=== PATIENT | female | born 2000 | race Hispanic/Latino ===

== ENCOUNTER 2019-03-05 19:54 | Emergency (ER) | payer BC, SELFPAY ==
[2019-03-05 20:41] LABS: Absolute Lymphocytes (CBC) 1.9 K/uL (0.7-4.9); Absolute Monocytes 0.6 K/uL (0.1-1.3); Absolute Neutrophil 8.6 K/uL (1.8-8.0); Basophils % 0.3 % (0-1.3); Eosinophils % 1.3 % (0-4.4); Lymphocytes % 16.7 % (15.3-44.8); MPV 8.2 fL (7.6-11.3); Monocytes % 5.6 % (3.3-12.3); RBC Red Blood Cell Count 4.51 M/uL (3.86-4.86)
[2019-03-05] MEDS ORDERED: NA CHLORIDE 0.9% 1,000 ML ONE (20:49)
[2019-03-05] MEDS ORDERED: ACETAMINOPHEN 325 MG TABLET ONE (20:49)
[2019-03-05] MEDS ORDERED: METOCLOPRAMIDE 10 MG/2mL INJ ONE (20:49)
[2019-03-05 21:07] LABS: ALT/SGPT 13 U/L (12-78); AST/SGOT 10 U/L (15-37); Albumin 3.5 g/dL (3.4-5.0); Alkaline Phosphatase 88 U/L (45-117); BUN Blood Urea Nitrogen 4 mg/dL (7-18); Bicarbonate 22 mmol/L (21-32); Bilirubin Direct < 0.1 mg/dL (0-0.2); Bilirubin Total 0.4 mg/dL (0.2-1.0); Glucose Level 85 mg/dL (74-106); Lipase 87 U/L (73-393); Potassium 3.6 mmol/L (3.5-5.1); Protein, Total 7.4 g/dL (6.4-8.2); Sodium Level 139 mmol/L (136-145)
[2019-03-05 23:21] LABS: Urine Blood 1+ (NEG); Urine Glucose NEGATIVE (NEG); Urine Protein 2+ (NEG)
[2019-03-05] MEDS ORDERED: CEFTRIAXONE/SWI 1gm 1 GM/10 ML SYR ONE (23:47)
--- NOTE | 2019-03-05 23:55 | ER ---
Nurse's Notes [facility] Name: Ramya Grady Age: 18 yrs Sex: Female : 2000 Arrival Date: 03/05/2019 Time: 19:58 Bed 26 Private MD: Diagnosis: Flank Pain;Urinary tract infection, site not specified Presentation: 03/05 20:04 Presenting complaint: Patient states: right flank pain that radiates to RLQ started 1 tl2 hour ago. Denies nausea or vomiting. Denies urinary symptoms. Pt is 5 months , no vaginal bleeding. Transition of care: patient was not received from another setting of care. Onset of symptoms was March 05, 2019 at 19:00. Risk Assessment: Do you want to hurt yourself or someone else? Patient reports no desire to harm self or others. Initial Sepsis Screen: Does the patient meet any 2 criteria? No. Patient's initial sepsis screen is negative. Does the patient have a suspected source of infection? No. Patient's initial sepsis screen is negative. Care prior to arrival: None. 20:04 Method Of Arrival: Wheelchair tl2 20:04 Acuity: NAVYA 3 tl2 Triage Assessment: 20:05 General: Appears in no apparent distress. uncomfortable, Behavior is cooperative, tl2 appropriate for age, crying. Pain: Complains of pain in right flank Pain radiates to right lower quadrant. 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 - Social history:: Smoking status: Patient/guardian denies using tobacco. - Ebola Screening: : No symptoms or risks identified at this time. Screenin:16 Abuse screen: Denies threats or abuse. Denies injuries from another. Nutritional ca1 screening: No deficits noted. Tuberculosis screening: No symptoms or risk factors identified. Fall Risk None identified. Assessment: 20:16 General: Appears in no apparent distress. uncomfortable, Behavior is calm, cooperative, ca1 appropriate for age. Pain: Complains of pain in right mid back Pain radiates to right lower quadrant and left lower quadrant Pain currently is 6 out of 10 on a pain scale. Quality of pain is described as sharp, Pain began 2 hours ago. Is continuous. Neuro: Level of Consciousness is awake, alert, obeys commands, Oriented to person, place, time, situation. Cardiovascular: Heart tones S1 S2 present Capillary refill < 3 seconds Patient's skin is warm and dry. Respiratory: Airway is patent Respiratory effort is even, unlabored, Respiratory pattern is regular, symmetrical, Breath sounds are clear bilaterally. GI: Abdomen is round non-distended, Bowel sounds present X 4 quads. Abd is soft and non tender X 4 quads. : No deficits noted. No signs and/or symptoms were reported regarding the genitourinary system. EENT: No deficits noted. No signs and/or symptoms were reported regarding the EENT system. Derm: Skin is intact, is healthy with good turgor, Skin is pink, warm \T\ dry. Musculoskeletal: Circulation, motion, and sensation intact. Capillary refill < 3 seconds. 21:09 Reassessment: Patient appears in no apparent distress at this time. Patient and/or ca1 family updated on plan of care and expected duration. Pain level reassessed. Patient is alert, oriented x 3, equal unlabored respirations, skin warm/dry/pink. 22:05 Reassessment: Patient appears in no apparent distress at this time. Patient is alert, ca1 oriented x 3, equal unlabored respirations, skin warm/dry/pink. Patient states feeling better. 23:00 Reassessment: Patient appears in no apparent distress at this time. Patient and/or ca1 family updated on plan of care and expected duration. Pain level reassessed. Patient is alert, oriented x 3, equal unlabored respirations, skin warm/dry/pink. 23:29 Reassessment: Patient appears in no apparent distress at this time. Patient and/or ca1 family updated on plan of care and expected duration. Pain level reassessed. Patient is alert, oriented x 3, equal unlabored respirations, skin warm/dry/pink. Vital Signs: 20:05 BP 117 / 62; Pulse 74; Resp 18; Temp 98.5(O); Pulse Ox 98% ; Weight 56.7 kg; Height 5 tl2 ft. 1 in. (154.94 cm); Pain 7/10; 21:09 BP 103 / 62; Pulse 68; Resp 18; Pulse Ox 97% on R/A; ca1 21:26 BP 105 / 60; Pulse 63; Resp 17 S; Pulse Ox 98% on R/A; ca1 22:05 BP 96 / 78; Pulse 95; Resp 19 S; Pulse Ox 100% on R/A; ca1 23:26 BP 103 / 52; Pulse 77; Resp 19 S; Pulse Ox 100% on R/A; ca1 03/06 00:01 BP 105 / 54; Pulse 62; Resp 19 S; Pulse Ox 100% on R/A; ca1 03/05 20:05 Body Mass Index 23.62 (56.70 kg, 154.94 cm) tl2 ED Course: 03/05 19:58 Patient arrived in ED. es 20:05 Triage completed. tl2 20:05 Arm band placed on right wrist. tl2 20:15 Rocky Kimball, JEF is Primary Nurse. rv 20:16 Patient has correct armband on for positive identification. Placed in gown. Bed in low ca1 position. Call light in reach. Side rails up X 1. Pulse ox on. NIBP on. Warm blanket given. 20:19 Asad Omer PA is PHCP. jmm 20:19 Joe Calvillo MD is Attending Physician. jmm 20:23 Inserted saline lock: 20 gauge in right antecubital area, using aseptic technique. jb5 Blood collected. 20:35 Basic Metabolic Panel Sent. jb5 20:35 CBC with Diff Sent. jb5 20:35 Creatinine for Radiology Sent. jb5 20:35 Hepatic Function Sent. jb5 20:35 Lipase Sent. jb5 20:45 Abo/rh Typing Sent. jb5 20:45 Quantitative Hcg Sent. jb5 21:21 US 1st Trimest Single 1st Fetus In Process Unspecified. EDMS 21:22 US Abdomen Limited In Process Unspecified. EDMS 22:07 Renal Ultrasound-Complete In Process Unspecified. EDMS 23:17 Urine --Ancillary (enter results) Sent. jb5 23:17 Urine Dipstick--Ancillary (enter results) Sent. jb5 03/06 00:10 No provider procedures requiring assistance completed. IV discontinued, intact, rv bleeding controlled, No redness/swelling at site. Pressure dressing applied. Administered Medications: 03/05 20:35 Drug: NS 0.9% (20 ml/kg) 20 ml/kg Route: IV; Rate: 1 bolus; Site: right antecubital; ca1 03/06 00:11 Follow up: IV Status: Completed infusion rv 03/05 20:35 Drug: Tylenol 650 mg Route: PO; ca1 21:28 Follow up: Response: No adverse reaction; Pain is decreased ca1 20:36 Drug: Reglan 10 mg Route: IVP; Site: right antecubital; ca1 21:28 Follow up: Response: No adverse reaction; Nausea is decreased ca1 23:37 Drug: Rocephin - (cefTRIAXone) 1 grams Route: IVPB; Infused Over: 30 mins; Site: right rv antecubital; 03/06 00:10 Follow up: IV Status: Completed infusion rv Outcome: 03/05 23:55 Discharge ordered by MD. granados 03/06 00:10 Discharged to home ambulatory. rv Condition: good Discharge instructions given to patient, Instructed on discharge instructions, follow up and referral plans. medication usage, Demonstrated understanding of instructions, follow-up care, medications, Prescriptions given X 1. 00:11 Patient left the ED. rv Signatures: Dispatcher [employer] EDMS Asad Omer PA PA jmm Salyer, Edna es Knox, Taylor, RN RN tl2 Naila Olea5 Rocky Kimball RN RN rv Poppy Cesar RN RN ca1 Corrections: (The following items were deleted from the chart) 03/05 21:44 20:16 GI: Abdomen is flat, non-distended, Bowel sounds present X 4 quads. Abd is soft ca1 and non tender X 4 quads. ca1 23:29 23:26 Reassessment: Patient appears in no apparent distress at this time. Patient ca1 and/or family updated on plan of care and expected duration. Pain level reassessed. Patient is alert, oriented x 3, equal unlabored respirations, skin warm/dry/pink. ca1
--- NOTE | 2019-03-05 23:55 | EDPHYS ---
Physician Documentation [facility] Name: Ramya Grady Age: 18 yrs Sex: Female : 2000 Arrival Date: 03/05/2019 Time: 19:58 Bed 26 Private MD: ED Physician Joe Calvillo HPI: 03/05 20:27 This 18 yrs old Female presents to ER via Wheelchair with complaints of Flank jmm Pain. 20:27 The patient complains of pain in the right flank. Onset: The symptoms/episode jmm began/occurred acutely, just prior to arrival. Modifying factors: The symptoms are alleviated by nothing. the symptoms are aggravated by nothing. This is a 18 year old female currently 18 week that presents to the ED with complaints of right upper abdominal pain. Symptoms began acutely. Denies vomiting, denies fever, denies diarrhea, denies vaginal bleeding, denies vaginal discharge. . 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 - Social history:: Smoking status: Patient/guardian denies using tobacco. - Ebola Screening: : No symptoms or risks identified at this time. ROS: 20:27 Constitutional: Negative for fever, chills, and weight loss, Cardiovascular: Negative jmm for chest pain, palpitations, and edema, Respiratory: Negative for shortness of breath, cough, wheezing, and pleuritic chest pain. 20:27 Abdomen/GI: Positive for abdominal pain, Negative for nausea and vomiting, diarrhea. 20:27 Back: Positive for flank pain, on the right. 20:27 All other systems are negative. Exam: 20:27 Head/Face: atraumatic. Eyes: EOMI, no conjunctival erythema appreciated ENT: Moist jmm Mucus Membranes Neck: Trachea midline, Supple Chest/axilla: Normal chest wall appearance and motion. Cardiovascular: Regular rate and rhythm. No edema appreciated Respiratory: Normal respirations, no respiratory distress appreciated 20:27 Constitutional: The patient appears alert, awake, in obvious pain. 20:27 Abdomen/GI: Inspection: gravid appearance, Bowel sounds: normal, Palpation: soft, mild abdominal tenderness, in the right upper quadrant. 20:27 Back: CVA tenderness, that is mild, is noted on the right. 20:27 Musculoskeletal/extremity: ROM: intact in all extremities. 20:27 Skin: Appearance: Color: normal in color. 20:27 Neuro: Orientation: is normal, Mentation: is normal, Memory: is normal. 20:27 Psych: Behavior/mood is pleasant, cooperative. Vital Signs: 20:05 BP 117 / 62; Pulse 74; Resp 18; Temp 98.5(O); Pulse Ox 98% ; Weight 56.7 kg; Height 5 tl2 ft. 1 in. (154.94 cm); Pain 7/10; 21:09 BP 103 / 62; Pulse 68; Resp 18; Pulse Ox 97% on R/A; ca1 21:26 BP 105 / 60; Pulse 63; Resp 17 S; Pulse Ox 98% on R/A; ca1 22:05 BP 96 / 78; Pulse 95; Resp 19 S; Pulse Ox 100% on R/A; ca1 23:26 BP 103 / 52; Pulse 77; Resp 19 S; Pulse Ox 100% on R/A; ca1 05 00:01 BP 105 / 54; Pulse 62; Resp 19 S; Pulse Ox 100% on R/A; ca1 03/05 20:05 Body Mass Index 23.62 (56.70 kg, 154.94 cm) tl2 MDM: 03/05 20:30 Patient medically screened. [facility] 23:50 ED course: Patient's pain is completely resolved on reevaluation. Patient has no right [facility] lower abdominal pain. US reveals mild hydronbephrosis, UA consistent with UTI. Patient is advised to closely follow up with ob and is given strict return precautions. patient is non toxic in appearance on discharge. . 23:54 Data reviewed: vital signs, nurses notes. Counseling: I had a detailed discussion with [facility] the patient and/or guardian regarding: the historical points, exam findings, and any diagnostic results supporting the discharge/admit diagnosis, the need for outpatient follow up, to return to the emergency department if symptoms worsen or persist or if there are any questions or concerns that arise at home. 03/05 20:27 Order name: Basic Metabolic Panel; Complete Time: 21:20 [facility] 03/05 20:27 Order name: CBC with Diff; Complete Time: 21:03 [facility] 03/05 20:27 Order name: Creatinine for Radiology; Complete Time: 21:20 [facility] 03/05 20:27 Order name: Hepatic Function; Complete Time: 21:20 [facility] 03/05 20:27 Order name: Lipase; Complete Time: 21:20 [facility] 03/05 20:31 Order name: Quantitative Hcg; Complete Time: 21:37 [facility] 03/05 20:31 Order name: Abo/rh Typing; Complete Time: 22:05 [facility] 03/05 20:31 Order name: US Abdomen Limited [facility] 03/05 23:16 Order name: Urine Dipstick--Ancillary (enter results); Complete Time: 23:44 vt 03/05 23:16 Order name: Urine --Ancillary (enter results); Complete Time: 23:44 vt 03/05 23:17 Order name: Urine Culture [facility] 03/05 23:17 Order name: Urine Microscopic Only; Complete Time: 01:03 [facility] 03/05 20:27 Order name: IV Saline Lock; Complete Time: 20:33 [facility] 03/05 20:27 Order name: Labs collected and sent; Complete Time: 20:33 [facility] 03/05 20:27 Order name: Urine Dipstick-Ancillary (obtain specimen); Complete Time: 23:25 [facility] 03/05 20:27 Order name: Urine Test (obtain specimen); Complete Time: 23:25 [facility] 03/05 22:07 Order name: Renal Ultrasound-Complete EDMS Administered Medications: 20:35 Drug: NS 0.9% (20 ml/kg) 20 ml/kg Route: IV; Rate: 1 bolus; Site: right antecubital; ca1 03/06 00:11 Follow up: IV Status: Completed infusion rv 03/05 20:35 Drug: Tylenol 650 mg Route: PO; ca1 21:28 Follow up: Response: No adverse reaction; Pain is decreased ca1 20:36 Drug: Reglan 10 mg Route: IVP; Site: right antecubital; ca1 21:28 Follow up: Response: No adverse reaction; Nausea is decreased ca1 23:37 Drug: Rocephin - (cefTRIAXone) 1 grams Route: IVPB; Infused Over: 30 mins; Site: right rv antecubital; 03/06 00:10 Follow up: IV Status: Completed infusion rv Disposition: 03/05/19 23:55 Discharged to Home. Impression: Flank Pain, Urinary tract infection, site not specified. - Condition is Stable. - Discharge Instructions: Urinary Tract Infection, Adult. - Prescriptions for cefpodoxime 200 mg Oral Tablet - take 1 tablet by ORAL route every 12 hours for 10 days with food; 20 tablet. - Medication Reconciliation Form, Thank You Letter, Antibiotic Education, Prescription Opioid Use form. - Follow up: Private Physician; When: 1 - 2 days; Reason: Recheck today's complaints, Continuance of care, Re-evaluation by your physician. Signatures: Dispatcher [employer] [facility] Asad Omer PA PA [facility] Kathleen Newell, RN RN tl2 Rocky Kimball RN RN rv Poppy Cesar RN RN ca1 Corrections: (The following items were deleted from the chart) 03/05 22:07 21:39 Rp Exam Limited+[email or web address] ordered. [facility] 23:55 23:55 03/05/2019 23:55 Discharged to Home. Impression: Flank Pain. Condition is Stable. [facility] Forms are Medication Reconciliation Form, Thank You Letter, Antibiotic Education, Prescription Opioid Use. Follow up: Private Physician; When: 1 - 2 days; Reason: Recheck today's complaints, Continuance of care, Re-evaluation by your physician. leeanne 03/06 00:11 03/05 23:55 03/05/2019 23:55 Discharged to Home. Impression: Flank Pain; Urinary tract rv infection, site not specified. Condition is Stable. Forms are Medication Reconciliation Form, Thank You Letter, Antibiotic Education, Prescription Opioid Use. Follow up: Private Physician; When: 1 - 2 days; Reason: Recheck today's complaints, Continuance of care, Re-evaluation by your physician. [facility]
[2019-03-06 00:03] LABS: Urine Bacteria LOADED /HPF (<20); Urine Culture Reflex Order NOT NEEDED; Urine RBC <5 /HPF (NONE SEEN)
[2019-03-06 02:15] VITALS: TEMP 98.2
[2019-03-06 02:16] VITALS: BP 120/69; O2SAT 98
--- NOTE | 2019-03-06 07:31 | RAD REPORT ---
EXAM DESCRIPTION: US - Abdomen Exam Limited - 03/05/2019 9:21 pm CLINICAL HISTORY: Abdominal pain, right flank pain Preliminary findings provided at the time of the study. COMPARISON: None. FINDINGS: No gallstones, sludge or other abnormalities within the gallbladder lumen. There is no wal l thickening or pericholecystic fluid. No common duct stone or biliary tree dilatation identified. Partially imaged right kidney shows significant hydronephrosis. Kidney is not fully evaluated. IMPRESSION: Normal gallbladder and biliary tree ultrasound. Significant hydronephrosis of a partially imaged right kidney.
--- NOTE | 2019-03-06 08:15 | RAD REPORT ---
EXAM DESCRIPTION: US - OB Complete - 03/06/2019 6:51 am CLINICAL HISTORY: , abdominal pain COMPARISON: None. FINDINGS: A single breech presenting gestation is identified. The 4 chamber heart view has a normal appearance. Heart rate normal. The intracranial contents and spine are grossly normal. A left- sided stomach bubble is seen with normal appearing bladder and kidneys. The 3 vessel cord, insertion site and anterior abdominal wall have normal appearance. No abnormalities are identifiable. measurements are as follows: BPD:4.43 Centimeters 19 weeks 3 days HC:16.55 Centimeters 19 weeks 2 days AC:14.19 Centimeters 19 weeks 4 days HL:2.83 Centimeters 19 weeks 1 day FL:3.01 Centimeters 19 weeks 2 days The estimated gestational age (EGA) is 19 weeks 2 days with an ANDREY of 07/28/2019. ratios are n ormal or within acceptable limits. The placenta is grade 0, posterior in location. No low-lying or pl acenta previa. The amniotic fluid volume is normal. No maternal adnexa abnormality. IMPRESSION: 1. Single, breech gestation with an EGA of 19 weeks 2 days and an ANDREY of the 07/28/2019. 2. No abnormalities are identifiable. ratios are normal or within acceptable limits. 3. Grade 0, posterior placenta with no low-lying or placenta previa. 4. Amniotic fluid volume is normal.
--- NOTE | 2019-03-06 12:51 | RAD REPORT ---
EXAM DESCRIPTION: US - Renal Ultrasound-Complete - 03/05/2019 10:07 pm CLINICAL HISTORY: 18 years old and is Female; right flank pain TECHNIQUE: Real-time ultrasound of the retroperitoneum (complete) with image documentation. COMPARISON: No relevant prior studies available. FINDINGS: Limitations: None. Aorta: No aneurysm. Common iliac arteries: No aneurysm. Inferior vena cava: Unremarkable. Right kidney: 10.9 cm long. There is mild right hydronephrosis. No stones. Left kidney: 11.0 cm long. No stones. No hydronephrosis. Bladder: One image demonstrates partial distention. Bladder not completely assessed. IMPRESSION: Mild right hydronephrosis. Electronically signed by: Candace Gan MD 03/05/2019 10:45 PM CDT Due to temporary technical issues with the PACS/Fluency reporting system, reports are being signed by the in house radiologist as a courtesy to ensure prompt reporting. The interpreting radiologist is f ully responsible for the content of the report.
== END 2019-03-06 00:11 | disposition home or self-care (01) ==
LOC: ER 19:54
DX: O23.42 Unspecified infection of urinary tract in pregnancy, second trimester (principal); Z3A.18 18 weeks gestation of pregnancy
CPT/HCPCS: 36415; 76705; 76770; 76801; 76805; 80048; 80076; 81003; 81015; 81025; 83690; 84702; 85025; 86900; 86901; 87086; 87088; 96361; 96365; 96375; 99284; J0696; J2765; J7030

== ENCOUNTER 2021-11-16 22:29 | Observation (INO) | payer BC, SELFPAY ==
--- OUTSIDE RECORDS SUMMARY | 2021-11-16 22:33 | XMS REPORT | Continuity of Care Document ---
:2000 Author Organization [facility] t Address [address] [place] [address] Dr. Bishop [address] [place] [address] Care Team Providers Name Role Phone German Garcia DO Attending Clinician Haroon MAYO F Attending Clinician Doctor Unassigned, Name Attending Clinician Unavailable Natalie Zarco Attending Clinician Natalie SANTILLAN Attending Clinician Unavailable Haroon MAYO F Admitting Clinician Payers Payer Name Policy Type Policy Number Effective Date Expiration Date S ource Problems Condition Condition Condition Status Onset Resolution Last Treating Co mments Source Name Details Category Date Date Treatment Clinician Date Screening Screening Disease Active 2018-11 Uni vers for STD for STD 0-24 ity of ([place] transmit[place] transmitte 00 Me dical d disease) d disease) Br anch Flu Flu Disease Active 2018-11 Univers vaccine vaccine 0-24 ity of need need 00:00: [address] Need for Need for Disease Active 2018-11 Unive rs HPV HPV 0-24 [place] [facility] Disease Active Univers (spontaneo (spontaneo - it [place] of [place] vaginal [place] vaginal [place] [facility] Single Single Disease Active Univers live live 13 it y of 00:00: [address] 37 weeks 37 weeks Disease Active Unive rs gestation gestation 912 ity of of of 00:00: [place] [facility] GBS (group GBS (group Disease Active Overview : Univers B B 9-11 Will ity of Streptococ Streptococ 00:00: [place] c[place] cus 00 in labor Medical carrier), carrier), and Bran ch +RV +RV delivery culture, culture, currently currently High risk High risk Disease Active Uni vers , , 8-12 it y of antepartum antepartum 00:00: [address] Insufficie Insufficie Disease Active U nivers nt nt 8-12 ity of 00:00: [place] care in care in 00 Medical third third Branch trimester trimester Multiparit Multiparit Disease Active U nivers y y 8-12 ity of 00:00: [place] 00 [facility] High risk High risk Disease Active Uni vers teen teen 8-12 [place] third in third 00 Medica l trimester trimester Bran ch Encounter Encounter Disease Active 2017-11 Uni vers for for 2-18 ity of initial initial 00:00: [place] prescripti prescripti 00 Me dical on of on of Branch injectable injectable contracept contracept sukhwinder sukhwinder Nexplanon Nexplanon Disease Active Uni vers in place in place 1-18 ity of 00:00: [address] Allergies, Adverse Reactions, Alerts Allergy Allergy Status Severity Reaction(s) Onset Inactive Treating Comm ents Source Name Type Date Date Clinician NO KNOWN Drug Active Univers ALLERGIE Class ity of S [facility] Social History Social Habit Start Date Stop Date Quantity Comments Source ASSERTION 2018-11-09 [facility] 00:00:00 [facility] Tobacco use and 2019-08-29 2019-08-29 Never used Universit y of exposure 00:00:00 00:00:00 [facility] Alcohol intake 2019-08-29 2019-08-29 Current [facility] 00:00:00 00:00:00 non-drinker of [facility] alcohol Branch (finding) Sex Assigned At [birth year] Universit y of 00:00:00 00:00:00 [facility] Smoking Status Start Date Stop Date Source Never smoker [facility] Medications Ordered Filled Start Stop Current Ordering Indication Dosage Frequency Signature Comments Components Source Medication Medication Date Date Medication? Clinician (SIG) Name Name measles, 2019- No .5mL 0.5 mL, Unive rs mumps + 07-19 Subcutaneo ity o f rubella vac 13:45: 18:46 , ONCE, [place] (-M-R II) 00 :00 1 dose, Medica l 1,000-12,50 Fri Branch 0 07/19/19 at TCID50/0.5 0845, mL Routine injection 0.5 mL docusate Yes [id number] 240mg Take 1 Un elizabeth calcium 240 9-13 capsule by it y of mg capsule 00:00: mouth once [place] 00 daily as Medical needed for Branch Constipati on. ibuprofen Yes [id number] 600mg Take 1 U nivers 600 mg 9-13 tablet by ity of tablet 00:00: mouth every 6 Medical (six) Branch hours as needed for Pain (scale 1-3) or Pain (scale 4-6) (Pain). Take with food or milk. Iron Fum & Yes [id number] 1{capsu Take 1 Univers P-FA-Vit B 9-13 le} capsule by ity of & C No.9 00:00: mouth [place] (INTEGRA 00 daily. Medical PLUS) 125 Branch mg iron- 1 mg Cap docusate Yes [id number] 240mg Take 1 Un elizabeth calcium 240 9-13 capsule by it y of mg capsule 00:00: mouth once [place] 00 daily as Medical needed for Branch Constipati on. ibuprofen Yes [id number] 600mg Take 1 U nivers 600 mg 9-13 tablet by ity of tablet 00:00: mouth [place] every 6 Medical (six) Branch hours as needed for Pain (scale 1-3) or Pain (scale 4-6) (Pain). Take with food or milk. Iron Fum & Yes [id number] 1{capsu Take 1 Univers P-FA-Vit B 9-13 le} capsule by ity of & C No.9 00:00: mouth [place] (INTEGRA 00 daily. Medical PLUS) 125 Branch mg iron- 1 mg Cap rho(D) Yes 300ug 300 mcg, Univer s immune 07-18 Intramuscu ity of globulin 16:08: lar, ONCE, [place] as (RHOGAM) 30 For 1 Medical syringe 300 dose, Branch mcg Conditiona l, Routine acetaminoph 2019-0 Yes 650mg 650 mg, Un elizabeth en 07-18 Oral, ity of (TYLENOL) 16:08: Q6HPRN, [place] tablet 650 26 Starting Medic al mg Precious Branch 07/18/19 at 1108, Until Discontinu ed, Routine, Pain (scale 1-3) ibuprofen 2019-0 Yes 600mg 600 mg, Univ ers (IBU) 07-18 Oral, ity of tablet 600 16:08: Q6HPRN, [place] mg 26 Starting Medical Precious Branch 07/18/19 at 1108, Until Discontinu ed, Routine, Pain (scale 4-6) diphenhydrA 2019-0 Yes 25mg 25 mg, Univ ers MINE 07-18 Oral, ity of (BENADRYL) 16:08: Q6HPRN, [place] tablet 25 26 Starting Medica l mg Precious Branch 07/18/19 at 1108, Until Discontinu ed, Routine, Sleep, Itching ondansetron 2019-0 Yes 4mg 4 mg, Slow Univers (ZOFRAN 07-18 IV Push, ity of (PF)) 16:08: Q8HPRN, [place] injection 4 26 Starting Medi jeffery mg Precious Branch 07/18/19 at 1108, Until Discontinu ed, Routine, Nausea and Vomiting (N/V) simethicone 2019-0 Yes 160mg 160 mg, Un elizabeth (GAS 07-18 Oral, ity of RELIEF) 16:08: PC+HSPRN, [place] chewable 26 Starting Medical tablet 160 Precious Branch mg 07/18/19 at 1108, Until Discontinu ed, Routine, Gas docusate 2019-0 Yes 240mg 240 mg, Unive rs calcium 07-18 Oral, ity of (SURFAK) 16:08: QDAILYPRN, [place] capsule 240 26 Starting Medi jeffery mg Precious Branch 07/18/19 at 1108, Until Discontinu ed, Routine, Constipati on magnesium 2019-0 Yes 30mL 30 mL, Univer s hydroxide 07-18 Oral, ity of (MILK OF 16:08: QDAILYPRN, [place] MAGNESIA) 26 Starting Medica l 400 mg/5 mL Precious Branch suspension 07/18/19 at 30 mL 1108, Until Discontinu ed, Routine, Constipati on benzocaine- Yes Topical, Un elizabeth menthol 07-18 PRN, ity of (DERMOPLAST 16:08: [place] 20-0.5 % 26 Precious Medical topical 07/18/19 at Branch spray 1108, Until Discontinu ed, Routine, Perineum discomfort human 2019- No .5mL 0.5 mL, Univers papillomav 07-18 Intramuscu it y of vac,9-markie(P 16:08: 18:48 lar, [place] F) 26 :00 ONCE-PRIOR Medical (GARDASIL 9 TO Branch (PF)) vial DISCHARGE, 0.5 mL 1 dose, Starting Precious 07/18/19 at 1108, Until Discontinu ed, Routine, Give vaccine prior to discharge morpHINE 2019- No 4mg 4 mg, Slow Un elizabeth injection 4 07-18 IV Push, ity of mg 13:30: 12:47 ONCE, 1 [place] 00 :00 dose, Precious Medical 07/18/19 at Branch 0830, Routine PNV Yes [id number] Take 1 Univers 102-iron-fo 5-08 TAB-CAP/M2 it y of late 00:00: by mouth [place] 1-dss-dha 00 daily. Medical (VITAFOL Branch FE+, WITH DOCUSATE,) 90 mg iron-1 mg -50 mg-200 mg Cap PNV Yes [id number] Take 1 Univers 102-iron-fo 5-08 TAB-CAP/M2 it y of late 00:00: by mouth [place] 1-dss-dha 00 daily. Medical (VITAFOL Branch FE+, WITH DOCUSATE,) 90 mg iron-1 mg -50 mg-200 mg Cap PNV 2019 Yes [id number] Take 1 Univers 102-iron-fo 5-08 TAB-CAP/M2 it y of late 00:00: by mouth [place] 1-dss-dha 00 daily. Medical (VITAFOL Branch FE+, WITH DOCUSATE,) 90 mg iron-1 mg -50 mg-200 mg Cap PNV Yes [id number] Take 1 Univers 102-iron-fo 5-08 TAB-CAP/M2 it y of late 00:00: by mouth [place] 1-dss-dha 00 daily. Medical (VITAFOL Branch FE+, WITH DOCUSATE,) 90 mg iron-1 mg -50 mg-200 mg Cap PNV 2019-0 Yes [id number] Take 1 Univers 102-iron-fo 5-08 TAB-CAP/M2 it y of late 00:00: by mouth [address] 00 daily. Medical (VITAFOL Branch FE+, WITH DOCUSATE,) 90 mg iron-1 mg -50 mg-200 mg Cap PNV 2018-0 Yes [id number] Take 1 Univers 102-iron-fo 5-08 TAB-CAP/M2 it y of late 00:00: by mouth [address] daily. Medical (VITAFOL Branch FE+, WITH DOCUSATE,) 90 mg iron-1 mg -50 mg-200 mg Cap PNV 2018-0 Yes [id number] Take 1 Univers 102-iron-fo 5-08 TAB-CAP/M2 it y of late 00:00: by mouth [address] daily. Medical (VITAFOL Branch FE+, WITH DOCUSATE,) 90 mg iron-1 mg -50 mg-200 mg Cap PNV 0 Yes [id number] Take 1 Univers 102-iron-fo 5-08 TAB-CAP/M2 it y of late 00:00: by mouth [address] daily. Medical (VITAFOL Branch FE+, WITH DOCUSATE,) 90 mg iron-1 mg -50 mg-200 mg Cap PNV 2018-0 Yes [id number] Take 1 Univers 102-iron-fo 5-08 TAB-CAP/M2 it y of late 00:00: by mouth [address] daily. Medical (VITAFOL Branch FE+, WITH DOCUSATE,) 90 mg iron-1 mg -50 mg-200 mg Cap PNV 2018-0 Yes [id number] Take 1 Univers 102-iron-fo 5-08 TAB-CAP/M2 it y of late 00:00: by mouth [address] daily. Medical (VITAFOL Branch FE+, WITH DOCUSATE,) 90 mg iron-1 mg -50 mg-200 mg Cap PNV 2019-0 Yes [id number] Take 1 Univers 102-iron-fo 5-08 TAB-CAP/M2 it y of late 00:00: by mouth [place] 1-dss-dha 00 daily. Medical (VITAFOL Branch FE+, WITH DOCUSATE,) 90 mg iron-1 mg -50 mg-200 mg Cap PNV 2019- No [id number] Take 1 Univ s 102-iron-fo 03-13 TAB-CAP/M2 i ty of late 00:00: 00:00 by mouth [place] 1-dss-dha 00 :00 daily. Medical (VITAFOL Branch FE+, WITH DOCUSATE,) 90 mg iron-1 mg -50 mg-200 mg Cap No known No Univers medications ity of [facility] Immunizations Ordered Filled Immunization Date Status Comments [facility] e Immunization Name Name HPV9 2019-08-29 Completed University of 00:00:00 [facility] Influenza Virus 2019-08-29 Completed Universit y of Vaccine Quad .5 mL 00:00:00 [facility] IM 6+ MO Branch HPV9 2019-07-19 Completed University of 00:00:00 [facility] MMR 2019-07-19 Completed University of 00:00:00 [facility] HPV9 2019-07-19 Completed University of 00:00:00 [facility] MMR 2019-07-19 Completed University of 00:00:00 [facility] Tdap 2019-06-03 Completed University of 00:00:00 [facility] Tdap 2019-06-03 Completed University of 00:00:00 [facility] Tdap 2019-06-03 Completed University of 00:00:00 [facility] Tdap 2019-06-03 Completed University of 00:00:00 [facility] Tdap 2019-06-03 Completed University of 00:00:00 [facility] Tdap 2019-06-03 Completed University of 00:00:00 [facility] TDAP 2019-06-03 Completed University of 00:00:00 [facility] Tdap 2019-06-03 Completed University of 00:00:00 [facility] Tdap 2019-06-03 Completed University of 00:00:00 [facility] Tdap 2019-06-03 Completed University of 00:00:00 [facility] Tdap 2019-06-03 Completed University of 00:00:00 [facility] Tdap 2019-06-03 Completed University of 00:00:00 [facility] Tdap 2019-06-03 Completed University of 00:00:00 [facility] Influenza Virus 2019-03-12 Completed Universit y of Vaccine Quad .5 mL 00:00:00 [place] Medical IM 6+ MO Branch Influenza Virus 2019-03-12 Completed Universit y of Vaccine Quad .5 mL 00:00:00 [place] [facility] IM 6+ MO Branch Influenza Virus 2019-03-12 Completed Universit y of Vaccine Quad .5 mL 00:00:00 [place] Medical IM 6+ MO Branch Influenza Virus 2019-03-12 Completed Universit y of Vaccine Quad .5 mL 00:00:00 [place] [facility] IM 6+ MO Branch Influenza Virus 2019-03-12 Completed Universit y of Vaccine Quad .5 mL 00:00:00 [place] [facility] IM 6+ MO Branch Influenza Virus 2019-03-12 Completed Universit y of Vaccine Quad .5 mL 00:00:00 [place] Medical IM 6+ MO Branch Influenza Virus 2019-03-12 Completed Universit y of Vaccine Quad .5 mL 00:00:00 [place] Medical 6+ MO Branch Influenza Virus 2019-03-12 Completed Universit y of Vaccine Quad .5 mL 00:00:00 [place] Medical IM 6+ MO Branch Influenza Virus 2019-03-12 Completed Universit y of Vaccine Quad .5 mL 00:00:00 [place] Medical IM 6+ MO Branch Influenza Virus 2019-03-12 Completed Universit y of Vaccine Quad .5 mL 00:00:00 [place] [facility] 6+ MO Branch Influenza Virus 2019-03-12 Completed Universit y of Vaccine Quad .5 mL 00:00:00 [place] Medical 6+ MO Branch Influenza Virus 2019-03-12 Completed Universit y of Vaccine Quad .5 mL 00:00:00 [place] Medical 6+ MO Branch Influenza Virus 2019-03-12 Completed Universit y of Vaccine Quad .5 mL 00:00:00 [place] Medical IM 6+ MO Branch Influenza Virus 2019-03-12 Completed Universit y of Vaccine Quad .5 mL 00:00:00 [place] Medical 6+ MO Branch Vital Signs Vital Name Observation Time Observation Value Comments Source Systolic blood 2019-07-19 13:00:00 120 mm[Hg] Univer sity of pressure [facility] Diastolic blood 2019-07-19 13:00:00 64 mm[Hg] Unive rsity of pressure [facility] Heart rate 2019-07-19 13:00:00 62 /min Universi ty of [facility] Body temperature 2019-07-19 13:00:00 36.67 Paige Univ ersity of [facility] Respiratory rate 2019-07-19 13:00:00 20 /min Univ ersity of [facility] Oxygen saturation in 2019-07-19 13:00:00 99 /min University Arterial blood by [facility] Pulse oximetry Branch Systolic blood 2019-07-15 18:22:00 109 mm[Hg] Univer sity of pressure [facility] Diastolic blood 2019-07-15 18:22:00 70 mm[Hg] Unive rsity of pressure [facility] Heart rate 2019-07-15 18:22:00 87 /min Universi ty of [facility] Body temperature 2019-07-15 18:22:00 36.67 Paige Univ ersity of [facility] Branch Respiratory rate 2019-07-15 18:22:00 16 /min Univ ersity of [facility] Body height 2019-07-15 18:22:00 154.9 cm Universi ty of [facility] Body weight 2019-07-15 18:22:00 65.573 kg Universi ty of [facility] BMI 2019-07-15 18:22:00 27.31 kg/m2 Universi ty of [place] [facility] Systolic blood 2019-07-01 18:18:00 111 mm[Hg] Univer sity of pressure [facility] Branch Diastolic blood 2019-07-01 18:18:00 57 mm[Hg] Unive rsity of pressure [facility] Branch Heart rate 2019-07-01 18:18:00 120 /min Universi ty of [facility] Body temperature 2019-07-01 18:18:00 36.17 Paige Univ ersity of [facility] Respiratory rate 2019-07-01 18:18:00 16 /min Univ ersity of [facility] Body height 2019-07-01 18:18:00 154.9 cm Universi ty of [place] [facility] Body weight 2019-07-01 18:18:00 64.978 kg Universi ty of [facility] Branch BMI 2019-07-01 18:18:00 27.07 kg/m2 Universi ty of [facility] Branch Systolic blood 2019-06-17 17:54:00 108 mm[Hg] Univer sity of pressure [place] [facility] [place] Diastolic blood 2019-06-17 17:54:00 67 mm[Hg] Unive rsity of pressure [facility] Heart rate 2019-06-17 17:54:00 70 /min Universi ty of [facility] Body temperature 2019-06-17 17:54:00 36.56 Paige [facility] [place] [facility] Res[facility] rate 2019-06-17 17:54:00 16 /min [facility] [place] [facility] Body height 2019-06-17 17:54:00 154.9 cm Universi ty of [facility] Body weight 2019-06-17 17:54:00 63.504 kg Universi ty of [facility] BMI 2019-06-17 17:54:00 26.45 kg/m2 Universi ty of [facility] Systolic blood 2019-06-03 18:27:00 102 mm[Hg] [facility] [place] [facility] Diastolic blood 2019-06-03 18:27:00 64 mm[Hg] [facility] [place] [facility] Heart rate 2019-06-03 18:27:00 76 /min Universi ty of [facility] Body temperature 2019-06-03 18:27:00 36.61 Paige [facility] [place] [facility] Respiratory rate 2019-06-03 18:27:00 16 /min [facility] [place] [facility] Body height 2019-06-03 18:27:00 154.9 cm Universi ty of [facility] Body weight 2019-06-03 18:27:00 61.689 kg Universi ty of [facility] BMI 2019-06-03 18:27:00 25.70 [facility] Procedures Procedure Date / Time Performing Clinician Source Performed CBC WITH DIFFERENTIAL 2019-07-19 08:35:00 [facility] TYPE AND SCREEN 2019 12:44:00 Magdiel Jerri [facility] RHO (D) IMMUNE GLOBULIN 2019 12:44:00 [facility] HEPATITIS B SURFACE 2019 12:33:00 Jerri Veloz [facility] ANTIGEN [facility] VENOUS CORD GAS 2019 12:33:00 Magdiel [facility] GALV ONLY - SYPHILIS 2019 12:33:00 Jerri Veloz [facility] IGG/IGM [facility] [place] [facility] ADMISSION 2019 05:01:00 Doctor Unassigned, [facility] POCT URINALYSIS 2019-07-15 18:25:00 Nehal Santillan [facility] POCT URINALYSIS 2019-07-01 18:20:00 Nehal Santillan [facility] POCT URINALYSIS 2019-06-17 17:57:00 Nehal Santillan [facility] TDAP VACCINE, >11 YRS, IM 2019-06-03 18:59:53 Nehal Santillan [facility] POCT TEST 2019-06-03 18:29:00 Nehal Santillan [facility] POCT URINALYSIS W/O 2019-06-03 18:29:00 [facility] [place] [facility] SPECIFIC GRAVITY [facility] NO SHOW OR MISSED 2019-06-03 17:44:22 Doctor Forrest, [facility] APPOINTMENT POLICY [place] [facility] ACKNOWLEDGEMENT L&D VISIT (NON-DELIVERED) 2019-05-26 05:01:00 Doctor Forrest, [facility] Encounters Start End Encounter Admission Attending Care Care Encounter Source Date/Time Date/Time Type Type Clinicians Facility Department ID 2021-01-26 2021-01-26 Patient FIGUEROA Garcia [id number] Univers 00:00:00 00:00:00 Outreach Edgard PRIMARY [id number] i ty of [facility] 4.2.7.2.686 Ruchi ORTIZ [id number] Ia dical 388 Branch 2019 2019-07-19 Hospital ALICE Patiño [id number] Univers 06:02:00 17:05:00 Encounter Ike CHRISTINE [id number] ity of [facility] 4.2.7.2.686 Robert edenilson [id number] [facility] 038 Branch 2019 2019 Orders Doctor JENKINS 1.2.840.114 [id number] Univers 00:00:00 00:00:00 Only UnassEMMETT salgado 350.1.13.10 ity of [place] [facility] 4.2.7.2.686 Robert as [id number] [address] 2019-07-15 2019-07-15 Routine Kerri CTOLEGARIO 1.2.840.114 [id number] Univers 13:02:28 14:24:17 Roshunda R [employer] 350.1.13.10 ity of Visit REGIONAL 4.2.7.2.686 Robert as MATERNAL [id number] Med ical & CHILD [address] [place] [address] 2019-07-02 2019-07-02 Telephone Kerri [facility] [id number] Univers 00:00:00 00:00:00 Roshunda R [employer] 350.1.13.10 ity of REGIONAL 4.2.7.2.686 Robert as MATERNAL [id number] [facility] ical & CHILD [address] [place] [address] 2019-07-01 2019-07-01 Routine Kerri [facility] 1.2.840.114 [id number] Univers 13:04:35 13:41:46 Roshunda R [employer] 350.1.13.10 ity of Visit [facility] 4.2.7.2.686 Robert as MATERNAL [id number] [facility] & CHILD [address] [place] [address] 2019-07-01 2019-07-01 Outpatient R KERRI CTOLEGARIO [facility] [id number] Univers 12:45:00 13:41:46 ROSHUNDA ity o f [facility] 2019-06-17 2019-06-17 Routine Kerri [facility] 1.2.840.114 [id number] Univers 12:47:49 13:09:42 Roshunda R [employer] 350.1.13.10 ity of Visit REGIONAL 4.2.7.2.686 Robert as MATERNAL [id number] [facility] ical & CHILD [address] [place] [address] 2019-06-03 2019-06-03 Initial Kerri [facility] 1.2.840.114 [id number] Univers 13:15:45 14:24:53 Roshunda R [employer] 350.1.13.10 ity of Visit REGIONAL 4.2.7.2.686 Robert as MATERNAL [id number] [facility] ical & CHILD [address] [place] [address] 2019-06-03 2019-06-03 Orders Doctor ALICE 1.2.840.114 [id number] Univers 00:00:00 00:00:00 Only Unassigned, EMMETT 350.1.13.10 ity of [place] [facility] 4.2.7.2.686 Robert as [id number] [address] Results Test Description Test Time Test Comments Results Result Comments Source GALV ONLY - SYPHIL[place] IGG/IGM 2019-07-19 14:23:00 Test Item Value Reference Range Interpretation Comme nts Syphilis IgG/IgM (test code = Non-reactive Non-reactive 69167-2) POONAM (test code = POONAM) Non-reactive - No serologic evidence of T. pallidum infection. Cannot exclude incubating or early syphilis. Submit a second specimen in 2-4 weeks if syphilis is clinically suspected.Equivocal - Further testing to follow.Reactive - Further testing to follow. Lab Interpretation (test code = Normal 72977-9) [facility] WITH [id number] 08:59:00 Test Item Value Reference Range Interpretation Comments WBC (test code = See_Comment [Automated 5690-2) message] The sy stem which generated this result transmitted reference range : 4.30 - 11.10 10*3/?L. The reference range was not used to interpret this result as normal/abnormal . RBC (test code = See_Comment L [Automated 589-8) message] The sy stem which generated this result transmitted reference range : 3.93 - 5.25 10*6/?L. The reference range was not used to interpret this result as normal/abnormal . HGB (test code = 10.0 g/dL 11.6-15 L 718-7) HCT (test code = 32.1 % 35.7-45.2 L 4544-3) MCV (test code = 88.7 fL 80.6-95.5 787-2) MCH (test code = 27.6 pg 25.9-32.8 785-6) MCHC (test code = 31.2 g/dL 31.6-35.1 L 786-4) RDW-SD (test code = 49.4 fL 39-49.9 31795-1) RDW-CV (test code = 15.5 % 12-15.5 788-0) PLT (test code = See_Comment L [Automated 777-3) message] The sy stem which generated this result transmitted reference range : 166 - 358 10*3/ ?L. The reference r krystal was not used to interpret this result as normal/abnormal . MPV (test code = 10.8 fL 9.5-12.9 23411-1) NRBC/100 WBC (test See_Comment [Automat ed code = [id number]) message] The system which generated this result transmitted reference range : 0.0 - 10.0 /100 WBCs. The refer ence range was not u sed to interpret th is result as normal/abnormal . NRBC x10^3 (test code <0.01 See_Comment [Auto mated = [id number]) message] The s ystem which generated this result transmitted reference range : 10*3/?L. The reference range was not used to interpret this result as normal/abnormal . GRAN MAT (NEUT) % 63.9 % (test code = 770-8) IMM GRAN % (test code 0.50 % = 4306775195) LYMPH % (test code = 27.4 % 736-9) MONO % (test code = 6.4 % 5905-5) EOS % (test code = 1.3 % 713-8) BASO % (test code = 0.5 % 706-2) GRAN MAT x10^3(ANC) 5.32 10*3/uL 1.88-7.09 (test code = 5599101650) IMM GRAN x10^3 (test 0.04 10*3/uL 0-0.06 code = 3518532720) LYMPH x10^3 (test code 2.28 10*3/uL 1.32-3.29 = 731-0) MONO x10^3 (test code 0.53 10*3/uL 0.33-0.92 = 742-7) EOS x10^3 (test code = 0.11 10*3/uL 0.03-0.39 711-2) BASO x10^3 (test code 0.04 10*3/uL 0.01-0.07 = 704-7) Lab Interpretation Abnormal (test code = 16998-0) [facility] IMMUNE [id number] 16:10:47 Test Item Value Reference Range Interpretation Comments RHIG CANDIDATE? No- see comment Patient i s not a (test code = candidate for R hIg- 5055) Patient is Rh Positive.Perfor med at [facility] Laboratory Services - [facility] [address] [place], [place] [address]Rxwm Free: [phone] A No. [id number] [facility] CenterHepatitis B Surface [id number] 13:59:00 Test Item Value Reference Range Interpretation Comments HBsAg Semi-Quantitative (test code = 5195-3) [facility] CenterType and Screen - ONCE [id number] 13:35:34 Test Item Value Reference Range Interpretation Comments ABO & RH (test code O POSITIVE Performe d at [facility] = 20) Laboratory Serv [facility] Blood [address] [facility] [address]Cpvm Free: [phone] A No. [id number] IAT (test code = Negative Performed a t [facility] 1185) Laboratory Serv [facility] Blood Bank[address] [facility] [address]Vtru Free: [phone] A No. [id number] [facility] CenterVENOUS CORD [id number] 12:48:00 Test Item Value Reference Range Interpretation Comments VENOUS BASE EXCESS, mEq/L CORD (test code = 5002152006) VENOUS PH, CORD (test 7.25-7.45 code = 3939590888) VENOUS PC02, CORD See_Comment [Automate d message] The (test code = system which ge nerated 8817181450) this result tra nsmitted reference range : 27 - 49 mmHg. The refer ence range was not used to interpret this result as normal/abnormal . VENOUS PO2, CORD (test See_Comment [Aut omated message] The code = 9190669533) system [facility] generated this result tra nsmitted reference range : 17 - 41 mmHg. The refer ence range was not used to interpret this result as normal/abnormal . VENOUS BICARBONATE, See_Comment [Automa lara message] The CORD (test code = system whi ch generated [id number]) this result tra nsmitted reference range : 12 - 29 mEq/L. The refe rence range was not used to interpret this result as normal/abnormal . [facility] CenterAR[facility] CORD [id number] 12:45:00 Test Item Value Reference Range Interpretation Comments BASE EXCESS, CORD (test mEq/L code = 0845983283) AC PH, CORD (BEAKER) 7.18-7.38 H (test code = 2333671474) PC02, CORD (test code = See_Comment L [Au tomated message] [id number]) The system apartum h generated this result transmitted ref erence range: 32 - 66 mmHg. The reference r krystal was not used to interpret this result as normal/abnor mal. PO2, CORD (test code = See_Comment [Aut omated message] [id number]) The system [employer] generated this result transmitted ref erence range: 10 - 30 mmHg. The reference r krystal was not used to interpret this result as normal/abnor mal. BICARBONATE, CORD (test See_Comment [Au tomated message] code = 4110978505) The syste m which generated this result transmitted ref erence range: 17 - 27 mEq/L. The reference r krystal was not used to interpret this result as normal/abnor mal. Lab Interpretation (test Abnormal code = 93396-8) [facility] URINALYSIS W SPECIFIC [id number] 18:26:00 Test Item Value Reference Range Interpretation Comments POCT U SP GRAV (test code = 3255) . 1.005-1.025 POCT PH U (test code = 3254) . 5-8 POCT U LEUK EST (test code = 3263) . Negative - Negative POCT U NIT (test code = 3262) . Negative - Negative POCT U PROT (test code = 3259) 1+ Negative - Negative POCT U GLU (test code = 3256) neg Negative - Negative POCT U KETONE (test code = 3258) . Negative - Negative POCT U UROBILI (test code = 3260) . 0.2-1 POCT U BILI (test code = 3261) . Negative - Negative POCT U BLD (test code = 3257) . Negative - Negative POCT U COLOR (test code = 3266) POCT U APPEAR (test code = 3267) [facility] URINALYSIS W SPECIFIC [id number] 18:26:00 Test Item Value Reference Range Interpretation Comments POCT U SP GRAV (test code = 3255) . 1.005-1.025 POCT PH U (test code = 3254) . 5-8 POCT U LEUK EST (test code = 3263) . Negative - Negative POCT U NIT (test code = 3262) . Negative - Negative POCT U PROT (test code = 3259) 1+ Negative - Negative POCT U GLU (test code = 3256) neg Negative - Negative POCT U KETONE (test code = 3258) . Negative - Negative POCT U UROBILI (test code = 3260) . 0.2-1 POCT U BILI (test code = 3261) . Negative - Negative POCT U BLD (test code = 3257) . Negative - Negative POCT U COLOR (test code = 3266) POCT U APPEAR (test code = 3267) [facility] URINALYSIS W SPECIFIC [id number] 18:26:00 Test Item Value Reference Range Interpretation Comments POCT U SP GRAV (test code = 3255) . 1.005-1.025 POCT PH U (test code = 3254) . 5-8 POCT U LEUK EST (test code = 3263) . Negative - Negative POCT U NIT (test code = 3262) . Negative - Negative POCT U PROT (test code = 3259) 1+ Negative - Negative POCT U GLU (test code = 3256) neg Negative - Negative POCT U KETONE (test code = 3258) . Negative - Negative POCT U UROBILI (test code = 3260) . 0.2-1 POCT U BILI (test code = 3261) . Negative - Negative POCT U BLD (test code = 3257) . Negative - Negative POCT U COLOR (test code = 3266) POCT U APPEAR (test code = 3267) [facility] URINALYSIS W SPECIFIC [id number] 18:20:00 Test Item Value Reference Range Interpretation Comments POCT U SP GRAV (test code = 3255) . 1.005-1.025 POCT PH U (test code = 3254) . 5-8 POCT U LEUK EST (test code = 3263) . Negative - Negative POCT U NIT (test code = 3262) . Negative - Negative POCT U PROT (test code = 3259) Trace Negative - Negative POCT U GLU (test code = 3256) Neg Negative - Negative POCT U KETONE (test code = 3258) . Negative - Negative POCT U UROBILI (test code = 3260) . 0.2-1 POCT U BILI (test code = 3261) . Negative - Negative POCT U BLD (test code = 3257) . Negative - Negative POCT U COLOR (test code = 3266) POCT U APPEAR (test code = 3267) [facility] URINALYSIS W SPECIFIC [id number] 17:57:00 Test Item Value Reference Range Interpretation Comments POCT U SP GRAV (test code = 3255) . 1.005-1.025 POCT PH U (test code = 3254) . 5-8 POCT U LEUK EST (test code = 3263) . Negative - Negative POCT U NIT (test code = 3262) . Negative - Negative POCT U PROT (test code = 3259) trace Negative - Negative POCT U GLU (test code = 3256) neg Negative - Negative POCT U KETONE (test code = 3258) . Negative - Negative POCT U UROBILI (test code = 3260) . 0.2-1 POCT U BILI (test code = 3261) . Negative - Negative POCT U BLD (test code = 3257) . Negative - Negative POCT U COLOR (test code = 3266) POCT U APPEAR (test code = 3267) [facility] URINALYSIS W/O SPECIFIC [id number] 18:29:00 Test Item Value Reference Range Interpretation Comments POCT PH U (test code = 3254) 6 mg/dl 5-8 POCT U LEUK EST (test code = 1+ Negative - Negative 3263) POCT U NIT (test code = 3262) neg Negative - Negative POCT U PROT (test code = 3259) 1+ Negative - Negative POCT U GLU (test code = 3256) neg Negative - Negative POCT U KETONE (test code = 3258) neg Negative - Negative POCT U BLD (test code = 3257) neg Negative - Negative [facility] CenterPOCT [id number] 18:29:00 Test Item Value Reference Range Interpretation Comments POCT PREG (test code = 1605) Positive On board controls acceptable with C Yes Line (test code = 3574) POCT PREG LOT # (test code = 3575) POCT PREG TEST DATE (test code = 3576) [facility] W/O SPECIFIC [id number] 18:29:00 Test Item Value Reference Range Interpretation Comments POCT PH U (test code = 3254) 6 mg/dl 5-8 POCT U LEUK EST (test code = 1+ Negative - Negative 3263) POCT U NIT (test code = 3262) neg Negative - Negative POCT U PROT (test code = 3259) 1+ Negative - Negative POCT U GLU (test code = 3256) neg Negative - Negative POCT U KETONE (test code = 3258) neg Negative - Negative POCT U BLD (test code = 3257) neg Negative - Negative [facility] CenterPO[facility] [id number] 18:29:00 Test Item Value Reference Range Interpretation Comments POCT PREG (test code = 1605) Positive On board controls acceptable with C Yes Line (test code = 3574) POCT PREG LOT # (test code = 3575) POCT PREG TEST DATE (test code = 3576) [facility]
[2021-11-16 23:09] LABS: Urine Blood Negative (Negative); Urine Glucose Negative (Negative); Urine Protein Negative (Negative); Urine Specific Gravity 1.025 (1.005-1.030); Urine pH 5.5 (5.0-7.0)
[2021-11-16] MEDS ORDERED: FAMOTIDINE 20 MG/2 ML VIAL IV ONE (23:15)
[2021-11-16 23:32] LABS: Absolute Lymphocytes (CBC) 1.9 K/uL (0.7-4.9); Hematocrit 38.8 % (36.0-45.0); Lymphocytes % 14.9 % (15.3-44.8); MPV 8.6 fL (7.6-11.3); RBC Red Blood Cell Count 4.49 M/uL (3.86-4.86)
[2021-11-16 23:32] LABS: Urine Specific Gravity/Preg 1.025 (1.005-1.030)
[2021-11-16 23:34] LABS: Urine Mucus 2+ /HPF (NONE SEEN)
[2021-11-16 23:35] LABS: Urine Bacteria <20 /HPF (<20); Urine RBC NONE SEEN /HPF (NONE SEEN)
[2021-11-16 23:41] LABS: ALT/SGPT 22 U/L (12-78); AST/SGOT 11 U/L (15-37); Albumin 4.5 g/dL (3.4-5.0); Alkaline Phosphatase 118 U/L (45-117); BUN Blood Urea Nitrogen 8 mg/dL (7-18); Bicarbonate 24 mmol/L (21-32); Bilirubin Direct 0.1 mg/dL (0-0.2); Bilirubin Total 0.6 mg/dL (0.2-1.0); Glucose Level 101 mg/dL (74-106); Lipase 58 U/L (73-393); Magnesium 2.2 mg/dL (1.8-2.4); Potassium 3.2 mmol/L (3.5-5.1); Protein, Total 8.8 g/dL (6.4-8.2); Sodium Level 135 mmol/L (136-145)
[2021-11-17 00:32] LABS: SARS-COV-2 RT PCR POSITIVE (NEGATIVE)
--- NOTE | 2021-11-17 01:09 | EDPHYS ---
Physician Documentation [facility] Name: Ramya Grady Age: 21 yrs Sex: Female : 2000 Arrival Date: 11/16/2021 Time: 22:32 Bed 16 Private MD: ED Physician Chris Sales HPI: 11/16 23:05 This 21 yrs old Female presents to ER via Wheelchair with complaints of cp Abdominal Pain, Nausea/Vomiting. 23:05 The patient presents with abdominal pain. Onset: The symptoms/episode began/occurred cp this morning, and became worse today. The symptoms do not radiate. Associated signs and symptoms: Pertinent positives: nausea and vomiting, anorexia, diarrhea, Pertinent negatives: blood in stools, chest pain, constipation, fever, vaginal discharge, vaginal bleeding. The symptoms are described as constant. Severity of pain: in the emergency department the pain is actually worse markedly. 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 - Social history:: Smoking status: Patient denies any tobacco usage or history of. ROS: 23:10 Constitutional: Negative for body aches, chills, fever, poor PO intake. cp 23:10 Eyes: Negative for injury, pain, redness, and discharge. cp 23:10 ENT: Negative for drainage from ear(s), ear pain, sore throat, difficulty swallowing, difficulty handling secretions. 23:10 Cardiovascular: Negative for chest pain. 23:10 Respiratory: Negative for cough, shortness of breath, wheezing. 23:10 Abdomen/GI: Positive for abdominal pain, nausea, vomiting, and diarrhea, anorexia, Negative for constipation, black/tarry stool, rectal bleeding. 23:10 Back: Negative for radiated pain. 23:10 : Negative for urinary symptoms, vaginal bleeding, vaginal discharge. 23:10 Neuro: Negative for altered mental status, headache, weakness. 23:10 All other systems are negative. Exam: 23:15 Constitutional: The patient appears in no acute distress, alert, awake, non-toxic, well cp developed, well nourished, in obvious pain. 23:15 Head/Face: Normocephalic, atraumatic. cp 23:15 Eyes: Periorbital structures: appear normal, Conjunctiva: normal, no exudate, no injection, Sclera: no appreciated abnormality, Lids and lashes: appear normal, bilaterally. 23:15 ENT: External ear(s): are unremarkable, Nose: is normal, Mouth: Lips: moist, Oral mucosa: moist, Posterior pharynx: Airway: no evidence of obstruction, patent. 23:15 Chest/axilla: Inspection: normal. 23:15 Cardiovascular: Rate: tachycardic, Rhythm: regular. 23:15 Respiratory: the patient does not display signs of respiratory distress, Respirations: normal, no use of accessory muscles, no retractions, labored breathing, is not present, Breath sounds: are clear throughout, no decreased breath sounds. 23:15 Abdomen/GI: Inspection: abdomen appears normal, Bowel sounds: active, all quadrants, Palpation: soft, in all quadrants, severe abdominal tenderness, in the umbilical area and right lower quadrant, rebound tenderness, is not appreciated, voluntary guarding, is elicited in the umbilical area and right lower quadrant. 23:15 Back: CVA tenderness, is absent. 23:15 Neuro: Orientation: to person, place \\T\\ time. Mentation: is normal, Motor: moves all fours, strength is normal, Sensation: is normal. Vital Signs: 22:40 BP 129 / 89; Pulse 109; Resp 24; Temp 98; Pulse Ox 100% ; Weight 62.14 kg; Height 5 ft. vc1 1 in. (154.94 cm); Pain 9/10; 22:58 BP 139 / 79; Pulse 119 RA; Resp 24 S; Temp 98.5(O); Pulse Ox 99% on R/A; tk1 11/17 00:00 BP 125 / 82 RA Supine (auto/reg); Pulse 68; Resp 16; Pulse Ox 100% on R/A; tk1 01:09 BP 125 / 82 RA Supine (auto/reg); Pulse 88 RA; Resp 16; Pulse Ox 100% on R/A; tk1 07:05 BP 90 / 46; Pulse 62; Resp 15; Temp 98.3(O); Pulse Ox 100% ; Pain 2/10; jh6 11/16 22:40 Body Mass Index 25.89 (62.14 kg, 154.94 cm) vc1 MDM: 11/16 22:49 Patient medically screened. 11/17 00:00 Differential diagnosis: appendicitis, bowel obstruction, cholecystitis, Cholelithiasis, cp diverticulitis, Dysmenorrhea, Ectopic , non-specific abd pain, Ovarian Torsion, Peritonitis, Pelvic Inflammatory Disease, Ureterolithiasis, urinary tract infection. 01:05 Data reviewed: vital signs, nurses notes, lab test result(s), radiologic studies, CT cp scan. 01:05 Physician consultation: Amrit Celis MD was called at 01:00, was contacted at 01:00, regarding admission, to the medical/surgical unit. patient's condition, and will see patient later today. 11/16 23:01 Order name: Basic Metabolic Panel; Complete Time: 00:00 11/17 00:00 Interpretation: Normal except: NA 135; K 3.2. 11/16 23: Order name: CBC with Diff; Complete Time: 00:00 cp 11/17 00:00 Interpretation: Normal except: WBC 12.50; ELISA% 77.7; LYM% 14.9; NEUT A 9.7. 11/16 23:01 Order name: Hepatic Function; Complete Time: 00:00 cp 11/17 00:01 Interpretation: Normal except: AST 11; ALK 118; TP 8.8; GLOB 4.3; A/G 1.0. 11/16 23:01 Order name: Lipase; Complete Time: 00:00 11/16 23: Order name: Urine Microscopic Only; Complete Time: 00:00 cp 11/17 00:02 Interpretation: Normal except: SQEPI 5-10. 11/16 23:01 Order name: Magnesium; Complete Time: 00:00 11/16 23:01 Order name: COVID-19/FLU A+B (Document "Date of Onset" if Symptomatic); Complete Time: cp 00:46 11/17 00:46 Interpretation: Reviewed. 11/16 23:08 Order name: Urine Dipstick-Ancillary; Complete Time: 00:00 EDMS 11/17 00:01 Interpretation: Normal except: UKET 1+. 11/16 23:09 Order name: Urine --Ancillary (enter results); Complete Time: 00:00 mw2 11/17 01:20 Order name: Basic Metabolic Panel EDMS 11/17 01:20 Order name: Basic Metabolic Panel EDMS 11/17 01:20 Order name: CBC with Automated Diff EDMS 11/17 01:20 Order name: CBC with Automated Diff EDMS 11/17 01:20 Order name: Lipase EDMS 11/16 23:01 Order name: IV Saline Lock; Complete Time: 23:10 cp 11/16 23:01 Order name: CT Abd/Pelvis - IV Contrast Only cp 11/17 01:20 Order name: NPO EDMS 11/17 01:20 Order name: Lipase EDMS 11/17 01:20 Order name: Liver (Hepatic) Function EDMS 11/17 01:20 Order name: Liver (Hepatic) Function EDMS 11/17 11:17 Order name: CBC with Automated Diff EDMS 11/16 23:01 Order name: Labs collected and sent; Complete Time: 23:16 cp 11/16 23:01 Order name: Urine Dipstick-Ancillary (obtain specimen); Complete Time: 23:10 cp 11/16 23:01 Order name: Urine Test (obtain specimen); Complete Time: 23:15 cp 11/17 00:47 Order name: NPO; Complete Time: 04:44 cp Administered Medications: 11/16 23:17 Drug: morphine 4 mg Route: IVP; Site: left antecubital; tk1 23:17 Drug: Zofran (Ondansetron) 4 mg Route: PO; tk11/17 00:53 Follow up: Response: Nausea is decreased; Vomiting decreased tk11/16 23:18 Drug: NS 0.9% 1000 ml Route: IV; Rate: 1 bolus; Site: left antecubital; tk11/17 00:05 Follow up: IV Status: Completed infusion; IV converted to saline lock tk11/16 23:18 Drug: Pepcid (famotidine) 20 mg Route: IVP; Site: left antecubital; tk1 11/17 01:31 Drug: Zofran (Ondansetron) 4 mg Route: IVP; Site: left antecubital; tk1 01:32 Drug: Zosyn (piperacillin-tazobactam) 3.375 grams Route: IVPB; Infused Over: 60 mins; tk1 Site: left antecubital; 02:05 Follow up: IV Status: Completed infusion; IV Intake: 100ml tk1 01:32 Drug: Dilaudid (HYDROmorphone) 1 mg Route: IVP; Site: left antecubital; tk1 01:36 Drug: Potassium Chloride 20 mEq Route: IV; Rate: calculated rate; Site: left tk1 antecubital; 04:43 Follow up: IV Status: Completed infusion; IV Intake: 100ml tk1 01:36 Drug: NS 0.9% 1000 ml Route: IV; Rate: 1 bolus; Site: left antecubital; tk1 02:15 Follow up: IV Status: Completed infusion; IV Intake: 1000ml tk1 Disposition: 11/18 08:00 Co-signature as Attending Physician, Chris Sales MD I agree with the assessment and sp3 plan of care. Disposition Summary: 11/17/21 01:08 Hospitalization Ordered Hospitalization Status: Observation cp Provider: Amrit Celis cp Condition: Stable cp Problem: new cp Symptoms: have improved cp Bed/Room Type: Standard cp Location: [facility] ER HOLD(11/17/21 01:23) cg Room Assignment: ERHOLD-(11/17/21 01:23) cg Diagnosis - Unspecified acute appendicitis cp Forms: - Medication Reconciliation Form cp - SBAR form cp Signatures: Dispatcher [employer] EDMS Luis Powell PA PA cp Garcia, Cindy, RN RN cg Chris Sales MD MD sp3 Antonella Vega tk1 Alba Leblanc RN RN vc1 Corrections: (The following items were deleted from the chart) 11/17 01:23 01:08 Telemetry/MedSurg (observation) cp cg 01:23 01:08 cp cg
--- NOTE | 2021-11-17 01:09 | ER ---
Nurse's Notes [facility] Name: Ramya Grady Age: 21 yrs Sex: Female : 2000 Arrival Date: 11/16/2021 Time: 22:32 Bed 16 Private MD: Diagnosis: Unspecified acute appendicitis Presentation: 11/16 22:40 Chief complaint: Patient states: My stomach hurts so bad, I tried to eat but threw it vc1 up like 30 min deshaun=o. I had to C4 energy drinks yesterday. Coronavirus screen: Vaccine status: Patient reports being unvaccinated. At this time, the client does not indicate any symptoms associated with coronavirus-19. Ebola Screen: No symptoms or risks identified at this time. Risk Assessment: Do you want to hurt yourself or someone else? Patient reports no desire to harm self or others. 22:40 Method Of Arrival: Wheelchair vc1 22:40 Acuity: NAVYA 2 vc1 22:44 Initial Sepsis Screen: Does the patient meet any 2 criteria? No. Patient's initial vc1 sepsis screen is negative. Does the patient have a suspected source of infection? No. Patient's initial sepsis screen is negative. Note Patient states she woke up with the pain but it has become severe within the last hour. Onset of symptoms was November 16, 2021. Triage Assessment: 22:45 General: Appears distressed, uncomfortable, ill, Behavior is cooperative, crying, vc1 inappropriate for age. Pain: Complains of pain in right upper quadrant, left upper quadrant and right lower quadrant Pain does not radiate. Pain currently is 9 out of 10 on a pain scale. Quality of pain is described as sharp, stabbing, Pain began gradually. GI: Abdomen is flat, non-distended, Abd is soft Abdomen is tender to palpation in right upper quadrant, left upper quadrant and right lower quadrant. Derm: Skin is diaphoretic. 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 - Social history:: Smoking status: Patient denies any tobacco usage or history of. Screenin/12 01:47 Abuse screen: Denies. Nutritional screening: No deficits noted. Tuberculosis screening: tk1 No symptoms or risk factors identified. Fall Risk None identified. No fall in past 12 months (0 pts). No secondary diagnosis (0 pts). IV access (20 points). Ambulatory Aid- None/Bed Rest/Nurse Assist (0 pts). Gait- Normal/Bed Rest/Wheelchair (0 pts) Mental Status- Oriented to own ability (0 pts). Total Tolbert Fall Scale indicates. Assessment: 11/16 22:50 Reassessment: Patient ambulated to restroom to collect mid stream urine specimen. tk1 General: Appears distressed, uncomfortable, Behavior is cooperative, crying, restless, Reports Pain to abdomen that started this am. Pain: Complains of pain in abdomen Pain radiates to right upper quadrant Pain currently is 10 out of 10 on a pain scale. Quality of pain is described as sharp, Pain began this am Alleviated by nothing. Aggravated by eating. Respiratory: No deficits noted. GI: Bowel sounds present X 4 quads. Abd is soft Abdomen is tender to palpation Abdomen has rebound tenderness in right lower quadrant. 23:03 Reassessment: Patient vomiting via emesis bag. Clear, liquid, blood streaked emesis tk1 noted. 11/17 00:52 Reassessment: Patient appears in no apparent distress at this time. Patient states tk1 feeling better. 07:05 Reassessment: Pt when walked into room. no cough or apparent distress noted. spouse at [facility] bedside and call light in reach. Pt reporting pain is minimal at this time. 07:05 General: Appears in no apparent distress. Pain: Complains of pain in right lower jh6 quadrant Pain currently is 2 out of 10 on a pain scale. Respiratory: No deficits noted. GI: Abd is soft Abdomen is tender to palpation in right lower quadrant. Vital Signs: 11/16 22:40 BP 129 / 89; Pulse 109; Resp 24; Temp 98; Pulse Ox 100% ; Weight 62.14 kg; Height 5 ft. vc1 1 in. (154.94 cm); Pain 9/10; 22:58 BP 139 / 79; Pulse 119 RA; Resp 24 S; Temp 98.5(O); Pulse Ox 99% on R/A; tk1 11/17 00:00 BP 125 / 82 RA Supine (auto/reg); Pulse 68; Resp 16; Pulse Ox 100% on R/A; tk1 01:09 BP 125 / 82 RA Supine (auto/reg); Pulse 88 RA; Resp 16; Pulse Ox 100% on R/A; tk1 07:05 BP 90 / 46; Pulse 62; Resp 15; Temp 98.3(O); Pulse Ox 100% ; Pain 2/10; jh6 11/16 22:40 Body Mass Index 25.89 (62.14 kg, 154.94 cm) vc1 ED Course: 11/16 22:32 Patient arrived in ED. kc5 22:42 Triage completed. vc1 22:43 Luis Powell PA is PHCP. cp 22:43 Chris Sales MD is Attending Physician. cp 22:47 Arm band placed on. vc1 22:47 Patient placed in an exam room, on a stretcher. vc1 22:50 Antonella Vega is Primary Nurse. tk1 22:57 Inserted saline lock: 22 gauge in left antecubital area, using aseptic technique. tk1 23:15 Magnesium Sent. kd3 23:15 Urine Microscopic Only Sent. kd3 23:16 Lipase Sent. kd3 23:16 Hepatic Function Sent. kd3 23:16 CBC with Diff Sent. kd3 23:16 Basic Metabolic Panel Sent. kd3 23:18 COVID-19/FLU A+B (Document "Date of Onset" if Symptomatic) Sent. tk1 11/17 00:21 CT Abd/Pelvis - IV Contrast Only In Process Unspecified. EDMS 01:08 Amrit Celis MD is Hospitalizing Provider. cp 04:45 Liver (Hepatic) Function Sent. tk1 04:45 Lipase Sent. tk1 04:45 Liver (Hepatic) Function Sent. tk1 04:45 Lipase Sent. tk1 04:45 CBC with Automated Diff Sent. tk1 04:45 CBC with Automated Diff Sent. tk1 04:45 Basic Metabolic Panel Sent. tk1 07:57 Placed in gown. Bed in low position. Call light in reach. 6 Administered Medications: 11/16 23:17 Drug: morphine 4 mg Route: IVP; Site: left antecubital; tk1 23:17 Drug: Zofran (Ondansetron) 4 mg Route: PO; tk1 11/17 00:53 Follow up: Response: Nausea is decreased; Vomiting decreased tk11/16 23:18 Drug: NS 0.9% 1000 ml Route: IV; Rate: 1 bolus; Site: left antecubital; tk1 11/17 00:05 Follow up: IV Status: Completed infusion; IV converted to saline lock tk1 11/16 23:18 Drug: Pepcid (famotidine) 20 mg Route: IVP; Site: left antecubital; tk1 11/17 01:31 Drug: Zofran (Ondansetron) 4 mg Route: IVP; Site: left antecubital; tk1 01:32 Drug: Zosyn (piperacillin-tazobactam) 3.375 grams Route: IVPB; Infused Over: 60 mins; tk1 Site: left antecubital; 02:05 Follow up: IV Status: Completed infusion; IV Intake: 100ml tk1 01:32 Drug: Dilaudid (HYDROmorphone) 1 mg Route: IVP; Site: left antecubital; tk1 01:36 Drug: Potassium Chloride 20 mEq Route: IV; Rate: calculated rate; Site: left tk1 antecubital; 04:43 Follow up: IV Status: Completed infusion; IV Intake: 100ml tk1 01:36 Drug: NS 0.9% 1000 ml Route: IV; Rate: 1 bolus; Site: left antecubital; tk1 02:15 Follow up: IV Status: Completed infusion; IV Intake: 1000ml tk1 Intake: 02:05 IV: 100ml; Total: 100ml. tk1 02:15 IV: 1000ml; Total: 1100ml. tk1 04:43 IV: 100ml; Total: 1200ml. tk1 Outcome: 01:08 Decision to Hospitalize by Provider. cp 13:32 Patient left the ED. 5 Signatures: Dispatcher [employer] EDMS Luis Powell PA PA cp Martinez, Maria Arelis Prescott RN RN kd3 Naila Pickett RN RN jh6 Kinga Garcia Tammie tk1 Alba Leblanc RN RN vc1
[2021-11-17] MEDS ORDERED: HYDROMORPHONE HCL 1 MG/ML INJ IV PRN (01:16)
[2021-11-17] MEDS ORDERED: ONDANSETRON 4 MG/2 ML VIAL IV PRN (01:16)
[2021-11-17] MEDS ORDERED: HYDROMORPHONE HCL 2 MG/ML inj ONE (01:16)
[2021-11-17] MEDS ORDERED: PIPERACIL/TAZO 3.375 GM VIAL IV ONE ×2 (01:17→08:59)
[2021-11-17] MEDS ORDERED: ONDANSETRON 4 MG/2 ML VIAL ONE ×4 (01:17→13:59)
[2021-11-17] MEDS ORDERED: KCL 20 MEQ/100 mL IVPB 100 ML IV ONE (01:17)
[2021-11-17] MEDS ORDERED: NA CHLORIDE 0.9% 100 ML IV ONE (01:18)
[2021-11-17] MEDS ORDERED: NA CHLORIDE 0.9% 1,000 ML ONE (01:39)
[2021-11-17] MEDS ORDERED: D5 0.45 NS 1,000 ML IV SCH (02:00)
[2021-11-17] MEDS ORDERED: NA CHLORIDE 0.9% 500 ML ONE (03:00)
[2021-11-17] MEDS ORDERED: D5 0.45 NS 1,000 ML IV ONE (03:49)
[2021-11-17 04:04] VITALS: BMI 25.9
[2021-11-17] MEDS ORDERED: INFLUENZA VACCINE (for 6+ mo) 0.5 ML DOSE IMVAC ONE (08:00)
[2021-11-17] MEDS ORDERED: HYDROMORPHONE HCL 1 MG/ML INJ ONE (08:58)
[2021-11-17] MEDS ORDERED: NA CHLORIDE 0.9% 100 ML ONE (08:58)
[2021-11-17] MEDS ORDERED: PIPER TAZO 3.375 GM in NA CHLORIDE 0.9% 100 ML IV SCH (09:00)
[2021-11-17 11:14] LABS: Absolute Lymphocytes (CBC) 1.6 K/uL (0.7-4.9); Hematocrit 33.7 % (36.0-45.0); Lymphocytes % 20.7 % (15.3-44.8); MPV 8.3 fL (7.6-11.3); RBC Red Blood Cell Count 3.86 M/uL (3.86-4.86)
[2021-11-17] MEDS ORDERED: Ringers Lactate 1,000 ML IV ONE (11:58)
--- NOTE | 2021-11-17 11:58 | RAD REPORT ---
EXAM DESCRIPTION: CT - Abdomen Pelvis W Contrast - 11/17/2021 6:04 am CLINICAL HISTORY: ABD PAIN TECHNIQUE: Axial computed tomography images of the abdomen and pelvis with intravenous contrast. S agittal and coronal reformatted images were created and reviewed. This CT exam was performed using one or more of the following dose reduction techniques: automated exposure control, adjustment of t he mA and/or kV according to patient size, and/or use of iterative reconstruction technique. COMPARISON: No relevant prior studies available. FINDINGS: Lung bases: Unremarkable. No mass. No consolidation. ABDOMEN: Liver: Unremarkable. No mass. Gallbladder and bile ducts: Unremarkable. No calcified stones. No ductal dilation. Pancreas: Unremarkable. No mass. No ductal dilation. Spleen: Unremarkable. No splenomegaly. Adrenals: Unremarkable. No mass. Kidneys and ureters: Normal renal cortical enhancement bilaterally. Minimal urothelial thickening o n the right. No hydronephrosis. Stomach and bowel: Unremarkable. No obstruction. No mucosal thickening. PELVIS: Appendix: The mid to distal appendix is dilated and fluid-filled measuring up to 14 mm in diameter. There may be a 10 mm appendicolith proximal to the dilation. The appendiceal tip terminates within t he left anterior lower abdomen. Bladder: The urinary bladder is partially decompressed. Mild circumferential urinary bladder wall thickening. Reproductive: Unremarkable as visualized. ABDOMEN and PELVIS: Intraperitoneal space: Small amount of free fluid within the cul-de-sac. No free air. Bones/joints: No acute fracture. No dislocation. Soft tissues: Tiny fat-containing umbilical hernia. Vasculature: Unremarkable. No abdominal aortic aneurysm. Lymph nodes: Unremarkable. No enlarged lymph nodes. IMPRESSION: 1. Findings which may reflect early acute appendicitis. 2. Mild urothelial thickening on the right which may be reactive. Mild circumferential urinary blad jose j wall thickening which may in part be related to degree of distention. Please correlate clinically for cystitis and ascending urinary tract infection. 3. Other findings as above. THIS REPORT CONTAINS FINDINGS THAT MAY BE CRITICAL TO PATIENT CARE: The findings were verbally discu ssed via telephone conference with CONSTANTINE Smart, on 11/17/2021 12:47 AM ANTHROPOLOGIST PHYSICAL. The results were acknow ledged and understood. Electronically signed by: Miroslava Barrera MD 11/17/2021 12:48 AM ANTHROPOLOGIST PHYSICAL Due to temporary technical issues with the PACS/Fluency reporting system, reports are being signed by the in house radiologist without review as a courtesy to ensure prompt reporting. The interpreting r adiologist is fully responsible for the content of the report.
[2021-11-17] MEDS ORDERED: ROCURONIUM 50 MG/5 ML VIAL IV ONE (12:10)
[2021-11-17] MEDS ORDERED: LIDOCAINE 2% MPF 5 ML VIAL ONE (12:11)
[2021-11-17] MEDS ORDERED: FENTANYL CITR 100 MCG/2 ML ONE ×2 (12:11→12:48)
[2021-11-17] MEDS ORDERED: propofoL 200 MG/20 ML VIAL IV ONE (12:12)
[2021-11-17] MEDS ORDERED: dexAMETHasone 10 MG/ML VIAL ONE (12:13)
[2021-11-17] MEDS ORDERED: KETOROLAC 30 MG/ML INJ ONE (12:13)
--- NOTE | 2021-11-17 12:22 | P.HP ---
Date of Service: 11/17/21 PC: This 21-year-old female presents to the emergency room with severe abdominal pain for diagnosis and treatment. HPC: Patient had not felt well since yesterday morning. Shortly after she ate she began to experience some abdominal pain. Describes as being across the upper portion of her abdomen. No radiation at that time. Over the course the day gradually drifted down to the right lower quadrant. She presented for evaluation and treatment. PSHx: G2, P2 PMHx: Negative Social Hx: No known allergies Sys R: Denies any cough, wheeze, shortness of breath. No chest pain or palpitations. No change in the taste of her food or smell. Had been having regular bowel movements until yesterday. No urinary complaints. O/E: Awake alert vital signs are stable HEENT: Within normal limits Chest: Air entry equal bilaterally Abd: Mild tenderness with some localizing signs in the right lower quadrant Newcomb: Intact Data: CT scan suggests acute early appendicitis. Patient is also COVID- positive. Impression: Acute abdomen Plan: I will take her to the operating room for laparoscopic possible open appendectomy. The risks of this procedure have been discussed. The possibility of bleeding, infection, injury to bile ducts blood vessels and intestines has been described. The possible need for an open and/or further surgeries and procedures was discussed. She understands and wants to proceed.
[2021-11-17] MEDS ORDERED: GLYCOPYRROLATE 0.2 MG/ML SYR ONE (12:49)
[2021-11-17] MEDS ORDERED: NEOSTIGMINE 1 MG/ML -5 ML ONE (12:49)
--- NOTE | 2021-11-17 13:46 | P.OP ---
Preoperative diagnosis: Acute abdomen Postoperative diagnosis: Acute appendicitis Primary procedure: Laparoscopic appendectomy Secondary procedure: Lizzette block Anesthesia: General Estimated blood loss: Less than 10 cc Specimen: 1 appendix Operative Technique: The patient brought the operating room and placed supine on the table. After the induction of adequate general endotracheal anesthesia, the area of the abdomen was prepped with a DuraPrep solution, she was draped in the usual aseptic manner. A subumbilical incision was made. This was brought down through the skin and subcutaneous tissue. The Visiport was used to enter the peritoneal cavity and created pneumoperitoneum to approximately 12 mmHg. Under direct vision a 5 mm trocar was placed in the lower portion of the abdomen and another 1 in the right upper quadrant. The patient was then placed in marked Trendelenburg. The table was rolled to the left. We can visualize the right lower quadrant. There we noticed a markedly distended appendix. I tried to get back it was actually flipped and folded on itself. Having straighten it out we could identify that it was acutely inflamed. The junction with the cecum was identified. An opening was made into the mesentery of the appendix just at this point. Converting the 10 mm to a 12 at the umbilicus were now able to introduce a linear stapler. This was placed across the base of the appendix and fired. The mesentery of the appendix was then taken down after doing some gentle dye dissection to expose the main vessels. The stapler was placed across this and fired and the appendix was now detached. It was placed in an Endo Catch and brought out through the umbilical trocar site. On returning back to our operative site. We could see that there was good hemostasis. The area was irrigated with a saline solution. The table was returned to the neutral position. The rest of the abdomen was aspirated from the peritoneal cavity. The anterior abdominal wall was Blocked on both sides using 0.25% Marcaine. At this point the pneumoperitoneum was collapsed, the Endo Close was used to approximate the umbilical fascial defect, and senia were applied to the skin. At the end of the procedure she was stable and sent to the recovery room. Needle sponge instrument count were correct. No drains were placed. Complications: None Fluids & blood products: Less than 10 cc
[2021-11-17] MEDS: HYDROMORPHONE HCL 1 MG/ML INJ ONE ×2 (14:02→14:07)
[2021-11-17] MEDS ORDERED: HYDROCODONE/APAP 7.5/325 MG TAB ONE (14:30)
[2021-11-17 15:10] VITALS: TEMP 97.5; O2SAT 100
[2021-11-17 15:40] VITALS: BP 110/77
== END 2021-11-17 15:39 | disposition home or self-care (01) ==
LOC: ER 22:29 → ERHOLD 11-17 01:23
PROVIDERS: ADMIT Surgery; ATTEND Surgery
PROC: 0DTJ4ZZ Resection of Appendix, Percutaneous Endoscopic Approach (ICD-10-PCS; principal; 2021-11-17 13:15)
DX: K35.80 Unspecified acute appendicitis (principal); U07.1 COVID-19
CPT/HCPCS: 0240U; 36415; 74177; 80048; 80076; 81003; 81015; 81025; 83690; 83735; 85025; 88304; G0378; J1100; J1170; J2405; J2543; J2704; J2710; J3010; J3480; J7030; J7040; J7120; J7799; Q9967